=== PATIENT | male | born 1995 | race Caucasian/White ===

== ENCOUNTER 2020-10-25 01:40 | Emergency (ER) | payer BC ==
[~2020-10-25] VITALS: Ht 185.4 cm; Wt 99.8 kg
[2020-10-25 01:44] VITALS: BP 138/84
[2020-10-25] MEDS ORDERED: DIPH,PERTUSS(ACELL),TET VAC/PF 0.5 ML IM-VACC ONE ×2 (02:00→02:12)
[2020-10-25] MEDS ORDERED: LIDOCAINE-MPF 1%, 5ML INFIL ONE (02:00)
[2020-10-25] MEDS ORDERED: LIDOCAINE 1%-EPI 1:100K, 20ML ONE (02:12)
[2020-10-25] MEDS ORDERED: LIDOCAINE-MPF 1%, 5ML ONE (02:15)
[2020-10-25] MEDS ORDERED: ESCI10TA10 PO (02:16)
[2020-10-25] MEDS ORDERED: ATOM40CA PO (02:16)
--- NOTE | 2020-10-25 02:50 | NUR ---
Patient given discharge instructions and they have confirmed that they understand the instructions. Patient ambulatory with steady gait. wound care reviewed. nad, no personal belongings left in room after dc.
[2020-10-25] MEDS ORDERED: NEOSPORIN OINT. PKT 1 PACKET ONE (02:59)
== END 2020-10-25 03:12 | disposition home or self-care (01) ==
LOC: ED 02:40
DX: S61.213A Laceration without foreign body of left middle finger without damage to nail, initial encounter (principal); W26.9XXA Contact with unspecified sharp object(s), initial encounter; Y93.89 Activity, other specified; Y92.009 Unspecified place in unspecified non-institutional (private) residence as the place of occurrence of the external cause; Y99.8 Other external cause status
CPT/HCPCS: 12041; 90471; 90715; 99284